=== PATIENT | female | born 1975 ===

== ENCOUNTER 2021-03-06 03:10 | Emergency (ER) | payer BC, SELFPAY ==
--- NOTE | 2021-03-06 03:19 | PC.NURSE ---
pt got up in middle of triage to use restroom. no vitals obtained.
--- NOTE | 2021-03-06 03:24 | PC.NURSE ---
pt doesn't currently want this RN to get vitals, because she wants to use someone's phone to erase the bluetooth devices in her [employer] that is outside. pt then went outside to parking lot.
--- NOTE | 2021-03-06 04:28 | PC.NURSE ---
pt has yet to return to ED wr for triage. will remove from triage list.
== END 2021-03-06 04:37 | disposition left against medical advice (07) ==
LOC: ANHED 04:35
DX: Z53.21 Procedure and treatment not carried out due to patient leaving prior to being seen by health care provider (principal)
CPT/HCPCS: 99199